=== PATIENT | male | born 1965 | race Caucasian/White ===

== ENCOUNTER 2019-06-07 20:07 | Inpatient (IN) | payer BC, OTHER ==
[~2019-06-07] VITALS: Ht 152.4 cm; Wt 64.0 kg
[~2019-06-07 20:07] MED LIST: AZOPT OPHTH1 %/10 M1 INTRAOCULR; BACTRIM DS TAB1 EACH PO; CIPROFLOXACIN500 M1 PO; CLEOCIN HCL300 MG PO; FLAGYL 250 MG250 MG PO; FLAGYL500 MG PO; IMURAN 50MG TAB50 M1 PO; LORTAB 5 MG/5001 TA1 PO; NOHOMEMEDICATIONS; NORCO 5-325 TA1 EACH PO; PERCOCET 5-3251 EACH PO; PHENERGAN 25 MG25 M1 PO; TRAVATAN Z2.5 ML OPHTHALMIC; ULTRAM 50MG TAB50 MG PO; VITAMIN B-1100 M2 PO; VOLTAREN100 GM TOP
[2019-06-07 20:08] VITALS: BP 154/87
[2019-06-07 20:45] LABS: ABSOLUTE NEUTROPHILS 6.6 thou/uL (1.4-8.2); BASOPHILS 0.6 % (0.0-2.0); EOSINOPHILS 1.4 % (0.0-3.0); HEMATOCRIT 45.8 % (42.0-52.0); HEMOGLOBIN 15.5 gm/dL (14.0-18.0); LYMPHOCYTES 20.4 % (24.0-44.0); MCH 35.7 pg (26.0-34.0); MCV 105.1 fL (80.0-100.0); MONOCYTES 9.9 % (1.0-8.0); PLATELET COUNT 179 thou/uL (150-400); POLYS 67.7 % (36.0-66.0); RBC 4.35 mil/uL (4.50-6.00); RDW 13.4 % (10.5-14.5); WBC 9.7 thou/uL (4.0-11.0)
[2019-06-07 20:48] LABS: URINE BILIRUBIN NEGATIVE (Negative); URINE BLOOD 1+ (Negative); URINE CLARITY CLEAR; URINE COLOR YELLOW; URINE GLUCOSE-RANDOM* NEGATIVE (Negative); URINE KETONES 1+ (Negative); URINE LEUKOCYTES-REFLEX NEGATIVE (Negative); URINE NITRITE-REFLEX NEGATIVE (Negative); URINE PROTEIN (DIPSTICK) 1+ (Negative); URINE SPECIFIC GRAVITY >= 1.030 (1.005-1.035); URINE UROBILINOGEN 0.2 E.U./dl (0.2-1.0)
[2019-06-07 20:54] LABS: ANION GAP 24 mmol/L (7-16); BUN 9 mg/dL (7-18); CALCIUM 9.4 mg/dL (8.5-10.1); CHLORIDE 100 mmol/L (98-107); CO2 14 mmol/L (21-32); GLUCOSE 114 mg/dL (74-106); POTASSIUM 4.1 mmol/L (3.5-5.1); SODIUM 138 mmol/L (136-145)
[2019-06-07 20:59] LABS: MUCUS >6 Heavy strn/LPF (None Seen); SQUAMOUS None Seen /LPF (0-3)
[2019-06-07 21:00] LABS: BACTERIA-REFLEX None Seen /HPF (None Seen); CRYSTALS None Seen /LPF (None Seen); HYALINE CASTS 0-3 Few /LPF (None Seen); URINE RBC None Seen /HPF (0-2); URINE WBC-REFLEX None Seen /HPF (0-5)
[2019-06-07 21:00] LABS: ALBUMIN 4.2 g/dL (3.4-5.0); SALICYLATE 6.4 mg/dL (2.8-20.0); SGOT 85 U/L (15-37); SGPT 65 U/L (30-65); TOTAL BILIRUBIN 0.7 mg/dL (<0.1-1.0); TOTAL PROTEIN 7.8 g/dL (6.4-8.2)
[2019-06-07 21:01] LABS: AMP/METHAMP Negative (Negative); BARBITURATES Negative (Negative); BENZODIAZEPINES Negative (Negative); COCAINE Negative (Negative); METHADONE Negative (Negative); OPIATES Negative (Negative); PCP Negative (Negative)
[2019-06-07 22:57] VITALS: BP 143/80
[2019-06-07 23:22] VITALS: BP 133/81
[2019-06-07 23:36] VITALS: BP 142/75
[2019-06-08 03:39] VITALS: BP 131/76
[2019-06-08 06:09] LABS: CALCIUM 8.5 mg/dL (8.5-10.1); CREATININE 0.8 mg/dL (0.7-1.3); POTASSIUM 3.7 mmol/L (3.5-5.1)
[2019-06-08 07:54] VITALS: BP 128/63
--- NOTE | 2019-06-08 08:20 | NUR ---
admit pt being admitted for seizure and etoh withdrawal, had a witnessed seizure at home brought in by ems has hx of drinking 2 to 3 bottles of wine per day. vss, oriented to room call light and plan of care. ivf's infusing as ordered no s/s of alcohol wihtdrawal at this time. continue to monitor
[2019-06-08] MEDS ORDERED: PRENATAL PO (09:21)
[2019-06-08] MEDS ORDERED: VITAMIN B-1100 M2 PO (09:21)
[2019-06-08] MEDS ORDERED: KEPPRA 500 MG500 M2 PO (09:22)
[2019-06-08] MEDS ORDERED: CHLORDIAZEPOXID25 M1 PO (09:23)
[2019-06-08 10:05] VITALS: BP 128/63
--- NOTE | 2019-06-08 12:24 | NUR ---
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
--- NOTE | 2019-06-08 14:43 | NUR ---
Received consult for ETOH withdrawal plan. SW reviewed chart and spoke with nursing and attending physician. Pt was discharged home this morning. Pt's family provided transportation home. No SW needs identified. Case closed.
--- NOTE | 2019-06-12 07:27 | EKG ---
[address] [place] [address] ELECTROCARDIOGRAM REPORT Name: ANABELJENNIFER ZULETASSE Room #: 352-P [facility] IN M.R.#: [id number] Admission: 06/07/19 Attend Phys: Manuel Johnston MD Discharge: 06/08/19 Date of : 65 Report #: [id number] THIS REPORT FOR: //name// [facility] ED Test Date: 2019-06-07 Test Time: 20:10:03 Pat Name: JENNIFER LITTLE Department: Room: [facility] Gender: M Application Helper: WG : 1965 Requested By: Yogi Tran Order Number: [id number] MD: Alfonso Agudelo Measurements Intervals [place] Rate: 135 P: 39 [place]: 139 QRS: -21 QRSD: 87 T: 60 QT: 296 QTc: 444 Interpretive Statements Sinus tachycardia Borderline left axis deviation Compared to ECG 06/11/2018 07:10:15 No significant change was found Electronically Signed On 06-12-2019 7:27:24 CDT by Alfonso Agudelo [email or web address] <ELECTRONICALLY SIGNED> By: Alfonso Agudelo MD, [facility] [id number] 09 Alfonso Agudelo MD, [facility] /EPI
== END 2019-06-08 11:00 | disposition home or self-care (01) | DRG 897 ==
LOC: ER 20:07 → EROBS 21:43 → 3W 23:31
PROVIDERS: Emergency Medicine; Nurse Practitioner Family; ADMIT Hospitalist
DX: F10.239 Alcohol dependence with withdrawal, unspecified (principal); K57.90 Diverticulosis of intestine, part unspecified, without perforation or abscess without bleeding; J32.9 Chronic sinusitis, unspecified; F17.210 Nicotine dependence, cigarettes, uncomplicated; F41.0 Panic disorder [episodic paroxysmal anxiety]; Z71.6 Tobacco abuse counseling; Z79.899 Other long term (current) drug therapy; Z90.49 Acquired absence of other specified parts of digestive tract; Z88.6 Allergy status to analgesic agent; Z88.0 Allergy status to penicillin; Z88.8 Allergy status to other drugs, medicaments and biological substances
CPT/HCPCS: 10879

== ENCOUNTER 2019-11-13 16:45 | Emergency (ER) | payer BC, OTHER ==
[~2019-11-13] VITALS: Ht 175.3 cm; Wt 70.0 kg
--- NOTE | ~2019-11-13 | EKG ---
[facility] [place] [address] ELECTROCARDIOGRAM REPORT Name: JENNIFER LITTLE Room #: PRE [facility].#: [id number] Admission: Attend Phys: Discharge: Date of : 65 Report #: [id number] THIS REPORT FOR: cc: [facility] - Clinic physician unknown [facility] - Clinic physician unknown Lawson Pathak MD ~ THIS REPORT FOR: //name// [facility] ED Test Date: 2019-11-13 Test Time: 17:05:50 Pat Name: JENNIFER LITTLE Department: Room: Gender: M Barrel Marker: ESAU : 1965 Requested By: Cornelio Dillon Order Number: [id number] MD: Measurements Intervals [place] Rate: 66 P: 68 [place]: 145 QRS: 30 QRSD: 116 T: 66 QT: 443 QTc: 465 Interpretive Statements Sinus rhythm Nonspecific intraventricular conduction delay Baseline wander in lead(s) V1,V2,V4,V6 Compared to ECG 06/07/2019 20:10:03 Intraventricular conduction delay now present Sinus tachycardia no longer present [email or web address] By: 1705 1705 Epiphany EpiphMD loreta /EPI
[~2019-11-13 16:45] MED LIST changes: +CHLORDIAZEPOXID25 M1 PO; +KEPPRA 500 MG500 M2 PO; +PRENATAL PO
[2019-11-13 17:10] LABS: ABSOLUTE NEUTROPHILS 8.5 thou/uL (1.4-8.2); BASOPHILS 0.5 % (0.0-2.0); EOSINOPHILS 2.4 % (0.0-3.0); HEMATOCRIT 29.9 % (42.0-52.0); HEMOGLOBIN 9.9 gm/dL (14.0-18.0); MCH 35.1 pg (26.0-34.0); MCHC 33.2 g/dL (28.0-37.0); MCV 105.6 fL (80.0-100.0); MONOCYTES 11.4 % (1.0-8.0); PLATELET COUNT 237 thou/uL (150-400); POLYS 63.7 % (36.0-66.0); RBC 2.83 mil/uL (4.50-6.00); RDW 13.7 % (10.5-14.5); WBC 13.4 thou/uL (4.0-11.0)
[2019-11-13 17:18] LABS: ANION GAP 16 mmol/L (7-16); BUN 13 mg/dL (7-18); CALCIUM 8.4 mg/dL (8.5-10.1); CHLORIDE 98 mmol/L (98-107); CO2 22 mmol/L (21-32); CREATININE 1.2 mg/dL (0.7-1.3); GLUCOSE 153 mg/dL (74-106); POTASSIUM 3.2 mmol/L (3.5-5.1); SODIUM 136 mmol/L (136-145)
[2019-11-13 17:25] LABS: APTT 28.5 Seconds (24.5-32.8); PROTIME 10.7 Seconds (9.3-11.4)
[2019-11-13 17:28] LABS: ALBUMIN 3.5 g/dL (3.4-5.0); SGOT 40 U/L (15-37); SGPT 29 U/L (30-65); TOTAL BILIRUBIN 1.9 mg/dL (<0.1-1.0); TOTAL PROTEIN 7.1 g/dL (6.4-8.2); TROPONIN-I <0.06 ng/mL (<0.06)
[2019-11-13 19:28] LABS: AMP/METHAMP Negative (Negative); BARBITURATES Negative (Negative); BENZODIAZEPINES Negative (Negative); COCAINE Negative (Negative); METHADONE Negative (Negative); OPIATES Negative (Negative); PCP Negative (Negative)
[2019-11-13 19:35] LABS: HEMATOCRIT 28.7 % (42.0-52.0); HEMOGLOBIN 9.6 gm/dL (14.0-18.0); MCHC 33.5 g/dL (28.0-37.0); MCV 104.3 fL (80.0-100.0); RBC 2.75 mil/uL (4.50-6.00); RDW 13.5 % (10.5-14.5); WBC 13.2 thou/uL (4.0-11.0)
[2019-11-13 20:32] VITALS: BP 142/48
== END 2019-11-13 20:32 | disposition short-term general hospital (02) ==
LOC: ER 16:45
PROVIDERS: Emergency Medicine
DX: R53.1 Weakness (principal); F17.210 Nicotine dependence, cigarettes, uncomplicated; Z88.5 Allergy status to narcotic agent; Z88.0 Allergy status to penicillin; Z88.8 Allergy status to other drugs, medicaments and biological substances; Z90.49 Acquired absence of other specified parts of digestive tract; Z79.899 Other long term (current) drug therapy

== ENCOUNTER 2019-11-27 23:38 | Emergency (ER) | payer BC, OTHER ==
[~2019-11-27] VITALS: Ht 175.3 cm; Wt 61.2 kg
[2019-11-28] MEDS ORDERED: ASA81BEC PO (00:57)
[2019-11-28] MEDS ORDERED: PLAVIX 75 MG TA75 MG PO (00:58)
[2019-11-28] MEDS ORDERED: LIPITOR 20 MG T20 M1 PO (00:58)
[2019-11-28] MEDS ORDERED: FOLIC ACID1 MG PO (01:18)
[2019-11-28] MEDS ORDERED: CORLANOR5 MG PO (01:19)
[2019-11-28] MEDS ORDERED: LASIX 40 MG TAB40 MG PO (01:19)
[2019-11-28] MEDS ORDERED: KEPPRA XR500 MG PO (01:20)
[2019-11-28] MEDS ORDERED: TOPROL XL50 MG (01:20)
[2019-11-28] MEDS ORDERED: VITAMIN B-1100 M2 PO (01:21)
[2019-11-28] MEDS ORDERED: KLOR-CON M2020 MEQ PO (01:21)
[2019-11-28 01:30] VITALS: BP 122/63
== END 2019-11-28 01:45 | disposition home or self-care (01) ==
LOC: ER 23:38
DX: L76.22 Postprocedural hemorrhage of skin and subcutaneous tissue following other procedure (principal); K14.8 Other diseases of tongue; R56.9 Unspecified convulsions; F17.210 Nicotine dependence, cigarettes, uncomplicated; Z88.5 Allergy status to narcotic agent; Z88.0 Allergy status to penicillin; Z90.49 Acquired absence of other specified parts of digestive tract; Y84.8 Other medical procedures as the cause of abnormal reaction of the patient, or of later complication, without mention of misadventure at the time of the procedure

== ENCOUNTER 2020-03-25 20:53 | Emergency (ER) | payer BC, OTHER ==
[~2020-03-25] VITALS: Ht 175.3 cm; Wt 65.3 kg
[~2020-03-25 20:53] MED LIST changes: +ASA81BEC PO; +CORLANOR5 MG PO; +FOLIC ACID1 MG PO; +KEPPRA XR500 MG PO; +KLOR-CON M2020 MEQ PO; +LASIX 40 MG TAB40 MG PO; +LIPITOR 20 MG T20 M1 PO; +PLAVIX 75 MG TA75 MG PO; +TOPROL XL50 MG
[2020-03-25] MEDS ORDERED: POTASSIUM600 MG PO (21:02)
[2020-03-25 21:38] LABS: URINE BILIRUBIN NEGATIVE (Negative); URINE BLOOD NEGATIVE (Negative); URINE CLARITY CLEAR; URINE COLOR YELLOW; URINE GLUCOSE-RANDOM* NEGATIVE (Negative); URINE KETONES NEGATIVE (Negative); URINE LEUKOCYTES-REFLEX NEGATIVE (Negative); URINE NITRITE-REFLEX NEGATIVE (Negative); URINE PROTEIN (DIPSTICK) NEGATIVE (Negative); URINE UROBILINOGEN 0.2 E.U./dl (0.2-1.0)
[2020-03-25 22:04] LABS: ABSOLUTE NEUTROPHILS 4.1 thou/uL (1.4-8.2); BASOPHILS 0.8 % (0.0-2.0); EOSINOPHILS 5.9 % (0.0-3.0); HEMATOCRIT 35.2 % (42.0-52.0); HEMOGLOBIN 11.9 gm/dL (14.0-18.0); MCH 30.5 pg (26.0-34.0); MCHC 33.9 g/dL (28.0-37.0); MCV 90.1 fL (80.0-100.0); MONOCYTES 9.9 % (1.0-8.0); PLATELET COUNT 229 thou/uL (150-400); POLYS 54.4 % (36.0-66.0); RBC 3.91 mil/uL (4.50-6.00); RDW 14.8 % (10.5-14.5); WBC 7.6 thou/uL (4.0-11.0)
[2020-03-25 22:09] LABS: CALCIUM 8.9 mg/dL (8.5-10.1); POTASSIUM 3.8 mmol/L (3.5-5.1)
[2020-03-25 23:20] VITALS: BP 123/87
== END 2020-03-25 23:20 | disposition home or self-care (01) ==
LOC: ER 20:53
PROVIDERS: Emergency Medicine
DX: R35.0 Frequency of micturition (principal); R30.9 Painful micturition, unspecified; Z90.49 Acquired absence of other specified parts of digestive tract; Z79.82 Long term (current) use of aspirin; Z79.899 Other long term (current) drug therapy; Z88.8 Allergy status to other drugs, medicaments and biological substances; Z88.6 Allergy status to analgesic agent; Z88.5 Allergy status to narcotic agent; Z88.0 Allergy status to penicillin; Z87.891 Personal history of nicotine dependence

== ENCOUNTER 2020-05-30 10:06 | Emergency (ER) | payer BC, OTHER ==
[~2020-05-30] VITALS: Ht 175.3 cm; Wt 65.3 kg
[~2020-05-30 10:06] MED LIST changes: +POTASSIUM600 MG PO
[2020-05-30 11:25] LABS: ABSOLUTE NEUTROPHILS 6.3 thou/uL (1.4-8.2); BASOPHILS 0.6 % (0.0-2.0); EOSINOPHILS 2.3 % (0.0-3.0); HEMATOCRIT 37.1 % (42.0-52.0); HEMOGLOBIN 12.6 gm/dL (14.0-18.0); LYMPHOCYTES 17.1 % (24.0-44.0); MCH 30.5 pg (26.0-34.0); MCV 89.8 fL (80.0-100.0); PLATELET COUNT 236 thou/uL (150-400); RBC 4.14 mil/uL (4.50-6.00); WBC 8.7 thou/uL (4.0-11.0)
[2020-05-30 11:35] LABS: CALCIUM 8.9 mg/dL (8.5-10.1); POTASSIUM 3.9 mmol/L (3.5-5.1)
[2020-05-30 11:42] LABS: ALBUMIN 3.9 g/dL (3.4-5.0); DIRECT BILIRUBIN 0.2 mg/dL (<0.1-0.2); TOTAL BILIRUBIN 0.8 mg/dL (0.2-1.0); TOTAL PROTEIN 7.3 g/dL (6.4-8.2)
[2020-05-30 13:13] LABS: URINE BILIRUBIN NEGATIVE (Negative); URINE BLOOD NEGATIVE (Negative); URINE CLARITY CLEAR; URINE COLOR YELLOW; URINE GLUCOSE-RANDOM* NEGATIVE (Negative); URINE KETONES 1+ (Negative); URINE LEUKOCYTES-REFLEX NEGATIVE (Negative); URINE NITRITE-REFLEX NEGATIVE (Negative); URINE PROTEIN (DIPSTICK) NEGATIVE (Negative); URINE SPECIFIC GRAVITY 1.015 (1.005-1.035); URINE UROBILINOGEN 0.2 E.U./dl (0.2-1.0)
[2020-05-30] MEDS ORDERED: ZOFRAN ODT4 MG PO (15:13)
[2020-05-30 15:33] VITALS: BP 112/82
== END 2020-05-30 15:34 | disposition home or self-care (01) ==
LOC: ER 10:06
PROVIDERS: Emergency Medicine
DX: R51 Headache (principal); R11.2 Nausea with vomiting, unspecified; Z87.891 Personal history of nicotine dependence; Z88.5 Allergy status to narcotic agent; Z88.0 Allergy status to penicillin; Z88.8 Allergy status to other drugs, medicaments and biological substances; Z79.899 Other long term (current) drug therapy; Z79.82 Long term (current) use of aspirin; Z90.49 Acquired absence of other specified parts of digestive tract; Z79.01 Long term (current) use of anticoagulants

== ENCOUNTER 2020-08-17 04:55 | Emergency (ER) | payer BC, OTHER ==
[~2020-08-17] VITALS: Ht 175.3 cm; Wt 65.3 kg
[~2020-08-17 04:55] MED LIST changes: +ZOFRAN ODT4 MG PO
[2020-08-17 05:32] LABS: ABSOLUTE NEUTROPHILS 4.3 thou/uL (1.4-8.2); BASOPHILS 0.9 % (0.0-2.0); EOSINOPHILS 5.9 % (0.0-3.0); HEMATOCRIT 40.9 % (42.0-52.0); HEMOGLOBIN 13.6 gm/dL (14.0-18.0); LYMPHOCYTES 28.5 % (24.0-44.0); MCH 30.1 pg (26.0-34.0); MCHC 33.2 g/dL (28.0-37.0); MCV 90.6 fL (80.0-100.0); MONOCYTES 9.9 % (1.0-8.0); PLATELET COUNT 244 thou/uL (150-400); POLYS 54.8 % (36.0-66.0); RBC 4.51 mil/uL (4.50-6.00); RDW 14.6 % (10.5-14.5); WBC 7.9 thou/uL (4.0-11.0)
[2020-08-17 05:39] LABS: ANION GAP 11 mmol/L (7-16); BUN 10 mg/dL (7-18); CALCIUM 9.3 mg/dL (8.5-10.1); CHLORIDE 104 mmol/L (98-107); CO2 25 mmol/L (21-32); GLUCOSE 103 mg/dL (74-106); POTASSIUM 3.8 mmol/L (3.5-5.1); SODIUM 140 mmol/L (136-145)
[2020-08-17 05:50] LABS: ALBUMIN 4.2 g/dL (3.4-5.0); SGOT 19 U/L (15-37); SGPT 19 U/L (30-65); TOTAL BILIRUBIN 0.5 mg/dL (0.2-1.0); TOTAL PROTEIN 7.6 g/dL (6.4-8.2); TROPONIN-I <0.06 ng/mL (<0.06)
[2020-08-17] MEDS ORDERED: SIMBRINZA 1%-0.28 ML OPHTHALMIC (05:59)
[2020-08-17 08:26] LABS: APTT 28.9 Seconds (24.5-32.8); PROTIME 10.5 Seconds (9.3-11.4)
[2020-08-17] MEDS ORDERED: KEPPRA 500 MG500 MG PO (10:42)
[2020-08-17 10:56] VITALS: BP 121/59
--- NOTE | 2020-08-19 10:13 | EKG ---
[facility] [place] [address] ELECTROCARDIOGRAM REPORT Name: JENNIFER LITTLE [id number] Admission: 08/17/20 Attend Phys: Discharge: 08/17/20 Date of : 65 Report #: [id number] THIS REPORT FOR: cc: Mack Lewis MD, Darren E. MD Lundgren,Alfonso Olmos MD [facility] ~ THIS REPORT FOR: //name// [facility] ED Test Date: 2020-08-17 Test Time: 05:09:46 Pat Name: JENNIFER LITTLE Department: Room: Gender: Hybrid Corn Breeder: : 1965 Requested By: Yogi Tran Order Number: [id number] MD: Alfonso Agudelo Measurements Intervals [place] Rate: 62 P: 24 [place]: 149 QRS: 19 QRSD: 91 T: 38 QT: 417 QTc: 424 Interpretive Statements Sinus rhythm No significant abnormality Compared to ECG 11/13/2019 17:05:50 No significant change was found Electronically Signed On 08-19-2020 10:13:22 STATISTICIAN MATHEMATICAL by Alfonso Agudelo [email or web address] <ELECTRONICALLY SIGNED> By: Alfonso Agudelo MD, FAC 08/19/20 1013 0509 0509 Alfonso Agudelo MD, [facility] /EPI
== END 2020-08-17 10:57 | disposition still patient (30) ==
LOC: ER 04:55
PROVIDERS: Emergency Medicine
DX: R56.9 Unspecified convulsions (principal); R41.82 Altered mental status, unspecified; R00.2 Palpitations; Z87.891 Personal history of nicotine dependence; Z90.49 Acquired absence of other specified parts of digestive tract; Z86.79 Personal history of other diseases of the circulatory system; Z79.899 Other long term (current) drug therapy; Z79.01 Long term (current) use of anticoagulants; Z88.0 Allergy status to penicillin; Z88.5 Allergy status to narcotic agent; Z88.8 Allergy status to other drugs, medicaments and biological substances

== ENCOUNTER 2020-08-18 13:47 | Emergency (ER) | payer BC, OTHER ==
[~2020-08-18] VITALS: Ht 177.8 cm; Wt 68.0 kg
[~2020-08-18 13:47] MED LIST changes: +KEPPRA 500 MG500 MG PO; +SIMBRINZA 1%-0.28 ML OPHTHALMIC
[2020-08-18 14:10] VITALS: BP 112/70
== END 2020-08-18 15:30 | disposition left against medical advice (07) ==
LOC: ER 13:47
DX: R56.9 Unspecified convulsions (principal); Z53.21 Procedure and treatment not carried out due to patient leaving prior to being seen by health care provider

== ENCOUNTER 2020-09-22 14:31 | Emergency (ER) | payer BC, OTHER | END 2020-09-22 16:00 | disposition left against medical advice (07) | LOC: ER 14:31 | DX: R04.2 Hemoptysis (principal); Z53.21 Procedure and treatment not carried out due to patient leaving prior to being seen by health care provider ==

== ENCOUNTER 2020-09-22 21:18 | Emergency (ER) | payer BC, OTHER ==
[~2020-09-22] VITALS: Ht 175.3 cm; Wt 72.6 kg
[2020-09-23 01:08] LABS: ABSOLUTE NEUTROPHILS 5.3 thou/uL (1.4-8.2); BASOPHILS 0.5 % (0.0-2.0); EOSINOPHILS 5.6 % (0.0-3.0); HEMATOCRIT 38.8 % (42.0-52.0); HEMOGLOBIN 12.9 gm/dL (14.0-18.0); LYMPHOCYTES 27.5 % (24.0-44.0); MCH 30.2 pg (26.0-34.0); MCHC 33.3 g/dL (28.0-37.0); MCV 90.8 fL (80.0-100.0); MONOCYTES 9.3 % (1.0-8.0); PLATELET COUNT 226 thou/uL (150-400); POLYS 57.1 % (36.0-66.0); RBC 4.28 mil/uL (4.50-6.00); WBC 9.2 thou/uL (4.0-11.0)
[2020-09-23 01:11] LABS: ANION GAP 11 mmol/L (7-16); BUN 10 mg/dL (7-18); CALCIUM 9.3 mg/dL (8.5-10.1); CHLORIDE 104 mmol/L (98-107); CO2 27 mmol/L (21-32); CREATININE 0.8 mg/dL (0.7-1.3); GLUCOSE 104 mg/dL (74-106); POTASSIUM 3.9 mmol/L (3.5-5.1); SODIUM 142 mmol/L (136-145)
[2020-09-23 01:20] LABS: TROPONIN-I <0.06 ng/mL (<0.06)
[2020-09-23 03:52] VITALS: BP 120/67
--- NOTE | 2020-09-23 13:11 | EKG ---
[place] [address] [facility] [place] [address] ELECTROCARDIOGRAM REPORT Name: JENNIFER LITTLE Room #: DEP Jeanette#: [id number] Admission: 09/22/20 Attend Phys: Discharge: 09/23/20 Date of : 65 Report #: [id number] [facility] ED Test Date: 2020-09-22 Test Time: 22:04:06 Pat Name: JENNIFER LITTLE Department: Room: Gender: M Per Diem Rn: : 1965 Requested By: Cornelio Dillon Order Number: [id number] MD: Dylan Ledbetter Measurements Intervals [place] Rate: 64 P: 55 [place]: 141 QRS: 54 QRSD: 93 T: 53 QT: 400 QTc: 413 Interpretive Statements Sinus rhythm Nonspecific T abnormalities, anterior leads Baseline wander in lead(s) I,III,aVL Compared to ECG 08/17/2020 05:09:46 T-wave abnormality now present Electronically Signed On 09-23-2020 13:11:42 WRITING MANAGER by Dylan Ledbetter [email or web address] <ELECTRONICALLY SIGNED> By: Dylan Ledbetter MD, [facility] 09/23/20 1311 2203 03 Dylan Ledbetter MD, FACC /EPI
== END 2020-09-23 03:52 | disposition home or self-care (01) ==
LOC: ER 21:18
PROVIDERS: Emergency Medicine
DX: R91.8 Other nonspecific abnormal finding of lung field (principal); Z90.49 Acquired absence of other specified parts of digestive tract; Z79.899 Other long term (current) drug therapy; Z87.891 Personal history of nicotine dependence; Z88.0 Allergy status to penicillin; Z88.5 Allergy status to narcotic agent; Z88.8 Allergy status to other drugs, medicaments and biological substances

== ENCOUNTER → 2020-10-01 | Outpatient (CLI) | payer BC, OTHER ==
[~2020-10-01] MED LIST changes: +CALCITRATE200 MG PO; +LASIX 20 MG TAB20 MG PO; +VITAMIN B-150 M1 PO
== END ==
LOC: LAB 11:01
PROVIDERS: ATTEND Pediatrics
DX: Z20.828 Contact with and (suspected) exposure to other viral communicable diseases (principal); Z01.812 Encounter for preprocedural laboratory examination

== ENCOUNTER 2020-10-07 08:46 | Outpatient (CLI) | payer BC, OTHER ==
[~2020-10-07] VITALS: Ht 175.3 cm; Wt 73.9 kg
== END 2020-10-08 12:01 | disposition home or self-care (01) ==
LOC: PUL 08:46 → TBA 08:46 → PUL 09:11
PROVIDERS: ATTEND Pediatrics
DX: I71.9 Aortic aneurysm of unspecified site, without rupture (principal); R91.8 Other nonspecific abnormal finding of lung field; M48.54XD Collapsed vertebra, not elsewhere classified, thoracic region, subsequent encounter for fracture with routine healing

== ENCOUNTER 2020-10-08 06:31 | Outpatient (CLI) | payer BC, OTHER ==
[~2020-10-08] VITALS: Ht 175.3 cm; Wt 73.9 kg
[2020-10-08 07:08] VITALS: BP 124/65
--- NOTE | 2020-10-13 17:06 | PATH ---
[facility] [address] [place] [address] PATHOLOGY RPT PROCEDURE Name: ANABELJENNIFER Room #: DEP [facility] Mickey.#: [id number] Admission: 10/08/20 Date of : 65 Discharge: 10/08/20 Report #: [id number] Path Case #: [id number] [facility] Accession Number: [id number] . 01 Material submitted: . bronchus - EDWIGE TBNA BRONCHOSCOPY. Modifiers: left, upper lobe . 01 Clinical history: . LUNG MASS . 02 Diagnosis: Lung, left upper lobe, transbronchial needle aspiration and biopsy: - Detached squamous epithelial fragments associated with marked acute inflammation and mild atypia, favor reactive atypia. - Abundant fragments of benign alveolated lung parenchyma present within the background. - No definitive dysplasia or malignancy present. (IUV:ralph; 10/13/2020) [facility] 10/13/2020 1132 Local . 02 Comment: Examination shows two detached squamous epithelial fragments with a flat 2-dimensional architecture, low nuclear to cytoplasmic ratio associated with numerous neutrophils. These are favored to be reactive. Malignant features are not appreciated. There is no malignancy present within the current biopsy tissue. (IUV:sales leader; 10/13/2020) . 02 Electronically signed: . Abby Espinoza MD, Pathologist NPI- [id number] . 01 Gross description: . Received in formalin labeled "Jennifer Hope, TBNA aspirate EDWIGE" are multiple fragments of car-brown soft tissue measuring in aggregate 2.0 x 0.3 x 0.1 cm. The specimen is filtered and submitted entirely in cassettes A1-A2. ([facility]; 10/11/2020) [facility] 10/11/2020 1328 Local . 02 Pathologist provided ICD-10: J18.9 . 02 CPT . 442664 Specimen Comment: A courtesy copy of this report has been sent to [phone] Specimen Comment: [address] [address] PATHOLOGY RPT PROCEDURE Name: JENNIFER HOPE Room #: DEP [facility] Jeanette#: [id number] Admission: 10/08/20 Date of : 65 Discharge: 10/08/20 Report #: [id number] Path Case #: [id number] Specimen Comment: Report sent to / DR OLIVEIRA Performed at: [address], [place], [place] [id number] MD Alex Clay MD Phone: [phone] Performed at: [address] [id number] MD Abby Espinoza MD Phone: [phone]
--- NOTE | 2020-10-15 15:07 | PATH ---
[facility] [place] [address] PATHOLOGY RPT PROCEDURE Name: JENNIFER LITTLE Room #: DEP [facility].#: [id number] Admission: 10/08/20 Date of : 65 Discharge: 10/08/20 Report #: [id number] Path Case #: [id number] Note [facility] Accession Number: [id number] TESTS RESULT FLAG UNITS REF RANGE LAB Clinician Provided Cytology Information No. of containers..01 Other (Miscellaneous) Source: TBNA EDWIGE DIAGNOSIS: 02 TBNA EDWIGE NEGATIVE FOR MALIGNANT EPITHELIAL CELLS. REACTIVE BRONCHIAL CELLS ARE PRESENT. MILD ACUTE AND CHRONIC INFLAMMATION. Comment: Immediate evaluation was rendered on two of the aspirate smears intraoperatively to assess the location during the procedure. TBNA EDWIGE: MARKEDLY REACTIVE BRONCHIAL EPITHELIAL CELLS PRESENT. Pathologist ICD10: 02 R91.8 Addendum: 02 This addendum is issued to document that the immediate evaluation rendered at the time of the procedure was called into the OR and Dr. Thomas Lomeli (battery service technician performing the procedure) was informed of the findings. . The remainder of the case and the findings remain unchanged. (IUV/db; 10/15/2020) LBQ/10/15/2020 Addendum Electronically Signed by Abby Espinoza MD, Pathologist Signed out by: Abby Espinoza MD, Pathologist NPI- [id number] Performed by: Marifer Levine, Gameplay Programmer ([facility]) Gross description: 01 2 TP 2 H/E /LCS 10/09/2020 1709 Local FLAG LEGEND: L-Low Normal,H-High Normal,LL-Alert Low,HH-Alert High <-Panic Low,>-Panic High,A-Abnormal,AA-Critical Abnormal Performed at: [address] [facility] [place] [address] [address] PATHOLOGY RPT PROCEDURE Name: ANABELJENNIFER Room #: DEP CL Jeanette#: [id number] Admission: 10/08/20 Date of : 65 Discharge: 10/08/20 Report #: [id number] Path Case #: [id number] Alex Clay MD, 02 [facility]I [facility] [address] [address] Abby Espinoza MD, Specimen Comment: A courtesy copy of this report has been sent to [phone] Specimen Comment: Report sent to Performed at: [address] [facility] [address], [place] [id number] MD Alex Clay MD Phone: [phone]
== END 2020-10-08 12:01 | disposition home or self-care (01) ==
LOC: PUL 06:31 → TBA 06:47 → PUL 12:01
PROVIDERS: ATTEND Pediatrics
DX: R91.8 Other nonspecific abnormal finding of lung field (principal); J98.4 Other disorders of lung; J18.9 Pneumonia, unspecified organism; E78.00 Pure hypercholesterolemia, unspecified; I25.2 Old myocardial infarction; Z98.890 Other specified postprocedural states; Z79.899 Other long term (current) drug therapy; Z87.891 Personal history of nicotine dependence; Z79.01 Long term (current) use of anticoagulants; Z88.0 Allergy status to penicillin; Z88.8 Allergy status to other drugs, medicaments and biological substances; Z86.73 Personal history of transient ischemic attack (TIA), and cerebral infarction without residual deficits; Z90.49 Acquired absence of other specified parts of digestive tract; Z95.2 Presence of prosthetic heart valve
CPT/HCPCS: 70005

== ENCOUNTER → 2020-11-07 | Outpatient (CLI) | payer OTHER ==
[~2020-11-07] VITALS: Ht 175.3 cm; Wt 72.6 kg
[2020-11-07 10:04] LABS: HEMATOCRIT 42.2 % (42.0-52.0); HEMOGLOBIN 14.2 gm/dL (14.0-18.0); MCH 30.4 pg (26.0-34.0); MCHC 33.6 g/dL (28.0-37.0); MCV 90.4 fL (80.0-100.0); RBC 4.67 mil/uL (4.50-6.00); RDW 14.3 % (10.5-14.5)
[2020-11-07 10:14] VITALS: BP 134/65
[2020-11-07 10:24] LABS: APTT 26.6 Seconds (24.5-32.8); PROTIME 10.4 Seconds (9.3-11.4)
[2020-11-07 10:50] LABS: CALCIUM 9.6 mg/dL (8.5-10.1); CREATININE 0.9 mg/dL (0.7-1.3); POTASSIUM 3.9 mmol/L (3.5-5.1)
[2020-11-07 11:58] VITALS: BP 102/54
== END | disposition home or self-care (01) ==
LOC: CAT 08:26
PROVIDERS: Radiology Diagnostic Radiology; ATTEND Pediatrics
DX: R07.9 Chest pain, unspecified (principal); Z53.8 Procedure and treatment not carried out for other reasons; R91.8 Other nonspecific abnormal finding of lung field; R04.2 Hemoptysis; E78.5 Hyperlipidemia, unspecified; K21.9 Gastro-esophageal reflux disease without esophagitis; I25.2 Old myocardial infarction; Z98.890 Other specified postprocedural states; Z79.899 Other long term (current) drug therapy; Z86.73 Personal history of transient ischemic attack (TIA), and cerebral infarction without residual deficits; Z90.49 Acquired absence of other specified parts of digestive tract; Z79.01 Long term (current) use of anticoagulants; Z95.2 Presence of prosthetic heart valve; Z87.891 Personal history of nicotine dependence

== ENCOUNTER 2020-12-22 20:58 | Emergency (ER) | payer OTHER ==
[~2020-12-22] VITALS: Ht 177.8 cm; Wt 76.7 kg
[2020-12-22] MEDS ORDERED: LIPITOR10 MG (21:09)
[2020-12-22 21:57] LABS: ABSOLUTE NEUTROPHILS 4.6 thou/uL (1.4-8.2); EOSINOPHILS 3.6 % (0.0-3.0); HEMOGLOBIN 13.3 gm/dL (14.0-18.0); LYMPHOCYTES 31.9 % (24.0-44.0); MCH 29.9 pg (26.0-34.0); MCHC 33.2 g/dL (28.0-37.0); MONOCYTES 8.5 % (1.0-8.0); PLATELET COUNT 222 thou/uL (150-400); RBC 4.44 mil/uL (4.50-6.00); RDW 14.4 % (10.5-14.5); WBC 8.5 thou/uL (4.0-11.0)
[2020-12-22 22:10] LABS: POTASSIUM 3.9 mmol/L (3.5-5.1)
[2020-12-22 22:13] LABS: ALBUMIN 3.9 g/dL (3.4-5.0); TOTAL BILIRUBIN 0.3 mg/dL (0.2-1.0); TOTAL PROTEIN 7.3 g/dL (6.4-8.2)
[2020-12-22 23:14] VITALS: BP 100/67
== END 2020-12-22 23:15 | disposition home or self-care (01) ==
LOC: ER 20:58
PROVIDERS: Nurse Practitioner
DX: R04.2 Hemoptysis (principal); I25.2 Old myocardial infarction; Z90.49 Acquired absence of other specified parts of digestive tract; Z79.899 Other long term (current) drug therapy; Z87.891 Personal history of nicotine dependence; Z88.0 Allergy status to penicillin; Z88.5 Allergy status to narcotic agent; Z88.8 Allergy status to other drugs, medicaments and biological substances

== ENCOUNTER → 2021-04-14 | Outpatient (CLI) | payer OTHER ==
[~2021-04-14] MED LIST changes: +LIPITOR10 MG
== END ==
LOC: CAT 09:29
PROVIDERS: ATTEND Pediatrics
DX: R91.8 Other nonspecific abnormal finding of lung field (principal); I71.00 Dissection of unspecified site of aorta